=== PATIENT | male | born 1940 | race Caucasian/White ===

== ENCOUNTER 2017-05-04 16:25 | Inpatient (IN) | payer MEDICARE ==
[2017-05-04] VITALS (8 sets, daily range): BP systolic 107–136; BP diastolic 53–68; BMI 25.2
[~2017-05-04] VITALS: Ht 160 cm; Wt 64.4 kg
--- NOTE | ~2017-05-04 | OP ---
PATIENT NAME: EDDI GARCIA MEDICAL RECORD: [id number] LOCATION:[id number] ADMISSION DATE:05/04/17 SURGEON: NOE SPARKS MD DATE OF OPERATION: 05/04/2017 SURGEON: Noe Sparks MD PREOPERATIVE DIAGNOSES: 1. Small-bowel obstruction. 2. Incarcerated right inguinal hernia repair. 3. 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 POSTOPERATIVE DIAGNOSES: 1. Incarcerated femoral hernia. 2. Small-bowel obstruction. 3. 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 PROCEDURE PERFORMED: Incarcerated femoral hernia repair with mesh, exploratory laparotomy, and small bowel resection. ANESTHESIA: General. COMPLICATIONS: None. SPECIMENS: Small bowel. Case was contaminated. ESTIMATED BLOOD LOSS: 50 cc. OPERATIVE COURSE: After consent was obtained, the patient was taken to the operating room and placed in the supine position on the operating table. Next, general anesthesia was given via endotracheal intubation. After a timeout was performed to confirm the correct patient and procedure, the abdomen and groin were prepped and draped in typical sterile fashion and Ioban dressing was placed. External landmarks were identified. Local anesthetic was injected for an inguinal nerve block as well as for the transverse incision. Skin was incised with a 15-blade scalpel. Dissection continued to the level of the external oblique fascia using electrocautery. The external oblique fascia was identified and it was incised with a 15-blade scalpel using Metzenbaum scissors. It was opened medially towards the internal ring, it was opened laterally towards the ASIS. Tissue flaps were created. At this time, it was noted that there was a large tense incarcerated femoral hernia. The hernia sac was gently dissected using right angle dissector and Metzenbaum scissors. The hernia sac was opened. A loop of small bowel with 4 cm of necrotic bowel with perforation was encountered. A small bowel resection was then done with the JERAMIE stapler. Two firings of the JERAMIE stapler. The specimen was passed off the field for permanent pathology. The staple line was imbricated using 3-0 silk suture. The remaining portion of the peritoneum was opened through the inguinal ligament. The small bowel was extracorporealized. The remaining portion of the small bowel appeared healthy and viable. The small bowel was reduced through the defect. The femoral defect was closed primarily using 0 Prolene suture. A Phasix mesh was then used in a standard Dhaval repair covering the opening of the femoral hernia. The inguinal hernia was reapproximated to the mesh. The mesh was secured with 2-0 Prolene suture. HOLLI drain was placed. Raya's fascia was closed with 3-0 Vicryl sutures, skin was closed with kristen. At the end of the case, all needle and instrument counts were correct. No complications OPERATIVE REPORT [id number] EDDI GARCIA occurred. The patient was extubated and transferred to the PACU in stable condition. 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
[2017-05-04] MEDS ORDERED: GABAPENTIN100 MG PO (16:41)
[2017-05-04] MEDS ORDERED: TRAZODONE HCL50 MG PO (16:42)
[2017-05-04] MEDS ORDERED: LANTUS INSULIN10 ML SC (16:44)
[2017-05-04] MEDS ORDERED: GLIPIZIDE10 MG PO (17:00)
[2017-05-04] MEDS ORDERED: LISINOPRIL10 MG PO (17:00)
[2017-05-04] MEDS ORDERED: GLUCOPHAGE500 MG PO (17:01)
[2017-05-04 22:57] LABS: BASOPHILS 0.2 % (0-2); EOSINOPHILS 0.5 % (0-7); HEMATOCRIT 36.4 % (42.0-54.0); HEMOGLOBIN 12.3 g/dL (13.5-17.5); IMMATURE GRANULOCYTES 0.2 % (0-5); MCH 31.1 pg (26.0-34.0); MCHC 33.8 g/dL (31.0-37.0); MCV 91.9 fL (80.0-100.0); MEAN PLATELET VOLUME 9.2 fL (7.4-10.4); MONOCYTES 9.4 % (2-11); NEUTROPHILS 78.7 % (40-80); PLATELET COUNT 166 10x3/uL (130-400); RBC 3.96 10x6/uL (4.20-6.10); WBC 8.3 10x3/uL (4.8-10.8)
[2017-05-04 23:05] LABS: ANION GAP 5.6 mmol/L (8-16); CARBON DIOXIDE 24.3 mmol/L (21.0-32.0); CREATININE - SERUM 1.7 mg/dL (0.6-1.3); POTASSIUM - SERUM 3.9 mmol/L (3.5-5.1)
[2017-05-05] VITALS (9 sets, daily range): BP systolic 91–117; BP diastolic 47–83; Ht 160 cm; Wt 64.4 kg
[2017-05-05 04:24] LABS: BASOPHILS 0.2 % (0-2); EOSINOPHILS 0.1 % (0-7); HEMOGLOBIN 11.8 g/dL (13.5-17.5); IMMATURE GRANULOCYTES 0.3 % (0-5); LYMPHOCYTES 6.8 % (15-50); MCH 30.8 pg (26.0-34.0); MCHC 32.8 g/dL (31.0-37.0); MEAN PLATELET VOLUME 9.8 fL (7.4-10.4); MONOCYTES 6.9 % (2-11); NEUTROPHILS 85.7 % (40-80); RBC 3.83 10x6/uL (4.20-6.10); RDW 13.3 % (11.5-14.5)
[2017-05-05 04:34] LABS: PLATELET COUNT 223 10x3/uL (130-400); WBC 12.6 10x3/uL (4.8-10.8)
[2017-05-05 04:40] LABS: CARBON DIOXIDE 18.9 mmol/L (21.0-32.0); POTASSIUM - SERUM 4.2 mmol/L (3.5-5.1)
[2017-05-05 04:45] LABS: ANION GAP 21.3 mmol/L (8-16)
[2017-05-05 04:57] LABS: CALCIUM 6.8 mg/dL (8.5-10.1); CREATININE - SERUM 2.4 mg/dL (0.6-1.3)
[2017-05-06 01:10] VITALS: BP 121/53
[2017-05-06 04:36] VITALS: BP 124/54
[2017-05-06 06:08] LABS: BASOPHILS 0.2 % (0-2); EOSINOPHILS 0.2 % (0-7); IMMATURE GRANULOCYTES 0.1 % (0-5); MCH 30.3 pg (26.0-34.0); MCV 92.1 fL (80.0-100.0); MEAN PLATELET VOLUME 9.2 fL (7.4-10.4); MONOCYTES 9.8 % (2-11); NEUTROPHILS 81.7 % (40-80); RDW 13.4 % (11.5-14.5)
[2017-05-06 06:22] LABS: ANION GAP 13.4 mmol/L (8-16); CALCIUM 7.2 mg/dL (8.5-10.1); POTASSIUM - SERUM 4.4 mmol/L (3.5-5.1)
[2017-05-06 06:31] LABS: CREATININE - SERUM 1.1 mg/dL (0.6-1.3)
[2017-05-06 06:33] LABS: HEMATOCRIT 26.7 % (42.0-54.0); HEMOGLOBIN 8.8 g/dL (13.5-17.5); PLATELET COUNT 148 10x3/uL (130-400); WBC 8.2 10x3/uL (4.8-10.8)
[2017-05-06 08:45] VITALS: BP 111/56
[2017-05-06 09:06] LABS: APTT 36.7 SECONDS (22.8-39.4); INR 1.3 (0.85-1.17); PROTIME 15.7 SECONDS (11.6-15.0)
[2017-05-06 12:37] VITALS: BP 134/71
[2017-05-06 16:49] VITALS: BP 114/44
[2017-05-06 22:53] VITALS: BP 109/48
[2017-05-07 04:09] LABS: BASOPHILS 0.3 % (0-2); EOSINOPHILS 0.9 % (0-7); HEMOGLOBIN 8.2 g/dL (13.5-17.5); IMMATURE GRANULOCYTES 0.1 % (0-5); LYMPHOCYTES 10.7 % (15-50); MCH 30.9 pg (26.0-34.0); MCHC 34.2 g/dL (31.0-37.0); MCV 90.6 fL (80.0-100.0); MEAN PLATELET VOLUME 9.1 fL (7.4-10.4); MONOCYTES 9.3 % (2-11); NEUTROPHILS 78.7 % (40-80); PLATELET COUNT 151 10x3/uL (130-400); RBC 2.65 10x6/uL (4.20-6.10); RDW 13.1 % (11.5-14.5); WBC 6.9 10x3/uL (4.8-10.8)
[2017-05-07 04:27] LABS: CALCIUM 7.4 mg/dL (8.5-10.1); CARBON DIOXIDE 26.2 mmol/L (21.0-32.0); CHLORIDE - SERUM 105 mmol/L (98-107); POTASSIUM - SERUM 3.9 mmol/L (3.5-5.1); SODIUM 137 mmol/L (136-145)
[2017-05-07 04:30] LABS: CALC OSMOLALITY 280 mosm/kg (275-300); CREATININE - SERUM 0.7 mg/dL (0.6-1.3); GLUCOSE 180 mg/dL (74-106); UREA NITROGEN 19 mg/dL (7-18); eGFR NON AFRICAN AMERICAN > 90 mL/min (90-120)
[2017-05-07 04:51] VITALS: BP 119/51
[2017-05-07 08:50] VITALS: BP 130/53
[2017-05-07 12:35] VITALS: BP 113/56
[2017-05-07 16:22] VITALS: BP 112/56
[2017-05-07 22:13] VITALS: BP 111/84
[2017-05-08 01:16] VITALS: BP 126/50
[2017-05-08 04:41] LABS: BASOPHILS 0.3 % (0-2); EOSINOPHILS 0.7 % (0-7); HEMATOCRIT 25.9 % (42.0-54.0); HEMOGLOBIN 8.6 g/dL (13.5-17.5); IMMATURE GRANULOCYTES 0.2 % (0-5); LYMPHOCYTES 10.2 % (15-50); MCH 30.1 pg (26.0-34.0); MCHC 33.2 g/dL (31.0-37.0); MCV 90.6 fL (80.0-100.0); MEAN PLATELET VOLUME 9.3 fL (7.4-10.4); MONOCYTES 9.4 % (2-11); NEUTROPHILS 79.2 % (40-80); RBC 2.86 10x6/uL (4.20-6.10); RDW 12.7 % (11.5-14.5); WBC 6.2 10x3/uL (4.8-10.8)
[2017-05-08 04:47] LABS: CALC OSMOLALITY 276 mosm/kg (275-300); CARBON DIOXIDE 28.2 mmol/L (21.0-32.0); CHLORIDE - SERUM 102 mmol/L (98-107); CREATININE - SERUM 0.7 mg/dL (0.6-1.3); GLUCOSE 189 mg/dL (74-106); SODIUM 136 mmol/L (136-145); eGFR NON AFRICAN AMERICAN > 90 mL/min (90-120)
[2017-05-08 04:48] LABS: PLATELET COUNT 184 10x3/uL (130-400)
[2017-05-08 04:56] LABS: UREA NITROGEN 12 mg/dL (7-18)
[2017-05-08 05:14] VITALS: BP 127/82
[2017-05-08 08:19] VITALS: BP 122/49
[2017-05-08] MEDS ORDERED: FLOMAX0.4 MG PO (11:54)
[2017-05-08] MEDS ORDERED: HYDROCODON-ACE1 EAC7 PO (11:57)
[2017-05-08 12:34] VITALS: BP 136/64
== END 2017-05-08 16:13 | disposition home or self-care (01) | DRG 352 ==
LOC: D.MS 16:25
PROVIDERS: Anesthesiology; Internal Medicine Nephrology; Surgery
PROC: 0YU54JZ Supplement Right Inguinal Region with Synthetic Substitute, Percutaneous Endoscopic Approach (ICD-10-PCS; principal; 2017-05-04 19:00)
DX: K40.30 Unilateral inguinal hernia, with obstruction, without gangrene, not specified as recurrent (principal); I10 Essential (primary) hypertension; E11.9 Type 2 diabetes mellitus without complications